=== PATIENT | female | born 1980 | race Caucasian/White ===

== ENCOUNTER 2020-05-03 13:08 | Inpatient (IN) ==
[2020-05-03 13:55] LABS: Basophils # 0.1 K/mcL (0.0-0.2); Basophils % 0.8 %; Eosinophils % 0.5 %; Hematocrit 40.8 % (35.3-44.9); Hemoglobin 13.9 g/dL (11.5-15.4); Immature Granulocytes % 0.3 % (0-4); Lymphocytes % 23.1 %; Mean Corpuscular HGB Conc 34.1 g/dL (31.6-35.5); Mean Corpuscular Hemoglobin 32.9 pg (28.0-33.3); Mean Corpuscular Volume 96.7 fL (83.0-100.0); Mean Platelet Volume 9.8 fL (9.4-12.4); Monocytes # 0.3 K/mcL (0.0-1.3); Monocytes % 3.9 %; Neutrophils # 6.2 K/mcL (1.6-8.9); Platelet Count 262 K/mcL (140-400); Red Blood Count 4.22 M/mcL (3.82-4.97); Red Cell Distribution Width 12.4 % (11.5-14.5); Segmented Neutrophils % 71.4 %; White Blood Count 8.7 K/mcL (4.3-11.1)
[2020-05-03 14:02] LABS: Amphetamine Screen,Urine Negative ng/mL (Cutoff=1000); Barbiturate Screen,Urine Negative ng/mL (Cutoff=200); Benzodiazepines Screen,Urine Negative ng/mL (Cutoff=200); Cannabinoid Screen,Urine Negative ng/mL (Cutoff = 50); Cocaine Screen,Urine Negative ng/mL (Cutoff= 300); Opiate Screen,Urine Negative ng/mL (Cutoff=300); Phencyclidine Screen,Urine Negative ng/mL (Cutoff=25)
[2020-05-03 14:05] LABS: Bilirubin,Urine Negative (Negative); Blood,Urine Negative (Negative); Clarity,Urine Clear (Clear); Color,Urine Light-Yellow (Yellow); Glucose,Urine (UA) Normal (Normal); Ketones,Urine Negative (Negative); Leukocyte Esterase,Urine Negative (Negative); Nitrite,Urine Negative (Negative); PH,Urine 6.5 pH Units (5.0-8.0); Protein,Urine Negative (Neg-Trace); Specific Gravity,Urine 1.012 (1.010-1.025); Urobilinogen,Urine Normal (Normal)
[2020-05-03 14:25] LABS: Acetaminophen < 10 mcg/mL (10-20); BUN/Creatinine Ratio 12 (6-26); Blood Urea Nitrogen 9 mg/dL (6-20); Calcium 9.5 mg/dL (8.6-10.3); Carbon Dioxide 22 mEq/L (23-29); Chloride 108 mEq/L (98-107); Chol/HDL Ratio 3.7 (0-4.9); Cholesterol 179 mg/dL (< 200); Ethanol < 10 mg/dL (Less than 10); Glucose 113 mg/dL (70-105); HDL Cholesterol 49 mg/dL (40-59); LDL Cholesterol,Calculated 109 mg/dL (< 100); Osmolality,Calculated 289 (280-300); Potassium 3.7 mEq/L (3.5-5.1); Salicylate < 2.5 mg/dL (15.0-30.0); Sodium 140 mEq/L (136-145); Triglycerides 105 mg/dL (< 150); Troponin I < 0.03 ng/mL (< 0.04); eGFR For African Americans > 60 (> 60); eGFR For Non-African Americans > 60 (> 60)
[2020-05-03 14:45] LABS: Estimated Average Glucose 100 mg/dl; Hemoglobin A1C 5.1 %
[2020-05-03] MEDS ORDERED: *HR* LORazepam 2 MG/ML VIAL IM PRN (18:11)
[2020-05-03] MEDS ORDERED: Haloperidol Lactate 5 MG/ML VIAL IM PRN (18:11)
[2020-05-03] MEDS ORDERED: *HR* LORazepam 1 MG TABLET PO PRN (18:11)
[2020-05-03] MEDS ORDERED: Mag Hydrox/Al Hydrox/Simeth 30 ML UDC PO PRN (18:11)
[2020-05-03] MEDS ORDERED: haloperidoL 5 MG TABLET PO PRN (18:11)
[2020-05-03] MEDS ORDERED: MOM Conc 10 ML UD.LIQ PO PRN (18:11)
[2020-05-03] MEDS: traZODone 50 MG TABLET PO PRN (20:46)
[2020-05-03] MEDS: hydrOXYzine pamoate 25 MG CAPSULE PO PRN (20:46)
[2020-05-03] MEDS: Acetaminophen 325 MG TABLET PO PRN (20:46)
[2020-05-04] MEDS: Acetaminophen 325 MG TABLET PO PRN (07:58)
[2020-05-04] MEDS: Potassium Effervescent 25 MEQ TABLET.EFF PO SCH (08:59)
[2020-05-04] MEDS ORDERED: (Cariprazine Hcl [Vraylar] 1.5 MG) PO SCH (09:00)
[2020-05-04] MEDS: Loratadine 10 MG TABLET PO SCH (09:00)
[2020-05-04] MEDS: hydrOXYzine pamoate 25 MG CAPSULE PO PRN ×2 (12:04→15:48)
[2020-05-04] MEDS: Ibuprofen 400 MG TABLET PO PRN ×2 (14:42→20:37)
[2020-05-04] MEDS: hydrOXYzine pamoate 25 MG CAPSULE PO SCH (20:37)
[2020-05-04] MEDS: traZODone 50 MG TABLET PO PRN (20:37)
[2020-05-05] MEDS: hydrOXYzine pamoate 25 MG CAPSULE PO PRN (01:07)
[2020-05-05] MEDS: traZODone 50 MG TABLET PO PRN (01:07)
[2020-05-05] MEDS: Ibuprofen 400 MG TABLET PO PRN ×2 (04:41→15:05)
[2020-05-05] MEDS: Potassium Effervescent 25 MEQ TABLET.EFF PO SCH (08:26)
[2020-05-05] MEDS: Loratadine 10 MG TABLET PO SCH (08:27)
[2020-05-05] MEDS: (Cariprazine Hcl [Vraylar] 1.5 MG) PO SCH (08:28)
[2020-05-05] MEDS: QUEtiapine Fumarate 100 MG TABLET PO PRN ×2 (11:43→20:35)
[2020-05-05] MEDS: hydrOXYzine pamoate 25 MG CAPSULE PO SCH (20:35)
[2020-05-06] MEDS: QUEtiapine Fumarate 100 MG TABLET PO PRN (03:50)
[2020-05-06] MEDS: Ibuprofen 400 MG TABLET PO PRN ×2 (03:50→15:29)
[2020-05-06] MEDS: hydrOXYzine pamoate 25 MG CAPSULE PO PRN ×2 (05:26→13:11)
[2020-05-06] MEDS: Potassium Effervescent 25 MEQ TABLET.EFF PO SCH (07:58)
[2020-05-06] MEDS: (Cariprazine Hcl [Vraylar] 1.5 MG) PO SCH (07:59)
[2020-05-06] MEDS: Loratadine 10 MG TABLET PO SCH (08:01)
[2020-05-06] MEDS ORDERED: QUEtiapine Fumarate 25 MG TABLET PO PRN (10:23)
[2020-05-06] MEDS: QUEtiapine Fumarate 100 MG TABLET PO SCH ×2 (15:29→20:21)
[2020-05-06] MEDS: hydrOXYzine pamoate 25 MG CAPSULE PO SCH (20:20)
[2020-05-07] MEDS: Ibuprofen 400 MG TABLET PO PRN ×2 (03:27→20:50)
[2020-05-07] MEDS: Potassium Effervescent 25 MEQ TABLET.EFF PO SCH (07:55)
[2020-05-07] MEDS: Loratadine 10 MG TABLET PO SCH (07:56)
[2020-05-07] MEDS: QUEtiapine Fumarate 100 MG TABLET PO SCH ×3 (07:57→20:50)
[2020-05-07] MEDS ORDERED: (Cariprazine Hcl [Vraylar] 1.5 MG) PO SCH (09:00)
[2020-05-07] MEDS: hydrOXYzine pamoate 25 MG CAPSULE PO PRN ×2 (09:51→16:54)
[2020-05-07] MEDS: (Cariprazine Hcl [Vraylar] 1.5 MG) PO SCH (09:52)
[2020-05-07] MEDS: hydrOXYzine pamoate 25 MG CAPSULE PO SCH (20:50)
[2020-05-08] MEDS: hydrOXYzine pamoate 25 MG CAPSULE PO PRN ×2 (01:08→11:34)
[2020-05-08] MEDS: Potassium Effervescent 25 MEQ TABLET.EFF PO SCH (08:54)
[2020-05-08] MEDS: QUEtiapine Fumarate 100 MG TABLET PO SCH ×2 (08:56→15:07)
[2020-05-08] MEDS: Loratadine 10 MG TABLET PO SCH (08:57)
[2020-05-08] MEDS: (Cariprazine Hcl [Vraylar] 1.5 MG) PO SCH (08:57)
[2020-05-08 09:30] VITALS: BP 120/81
== END 2020-05-08 16:00 | disposition other institution (70) | DRG 753 ==
LOC: EMEROOARM 13:08 → 1ANU 17:14
PROVIDERS: ADMIT Psychiatry & Neurology Psychiatry; ATTEND Psychiatry & Neurology Psychiatry

== ENCOUNTER 2020-06-04 09:37 | Observation (INO) ==
[2020-06-04] MEDS ORDERED: 0.9 % Sodium Chloride 1,000 ML IVC ONE (09:49)
[2020-06-04 10:13] LABS: Basophils % 0.5 %; Bilirubin,Urine Negative (Negative); Blood,Urine Negative (Negative); Clarity,Urine Clear (Clear); Color,Urine Colorless (Yellow); Eosinophils # 0.1 K/mcL (0.0-0.6); Eosinophils % 0.7 %; Glucose,Urine (UA) Normal (Normal); Hematocrit 37.7 % (35.3-44.9); Hemoglobin 12.8 g/dL (11.5-15.4); Immature Granulocytes % 0.2 % (0-4); Ketones,Urine Negative (Negative); Leukocyte Esterase,Urine Negative (Negative); Lymphocytes # 1.7 K/mcL (0.6-4.6); Lymphocytes % 19.2 %; Mean Corpuscular Hemoglobin 32.2 pg (28.0-33.3); Mean Corpuscular Volume 94.7 fL (83.0-100.0); Monocytes # 0.5 K/mcL (0.0-1.3); Monocytes % 5.3 %; Neutrophils # 6.5 K/mcL (1.6-8.9); Nitrite,Urine Negative (Negative); Platelet Count 197 K/mcL (140-400); Protein,Urine Negative (Neg-Trace); Red Blood Count 3.98 M/mcL (3.82-4.97); Red Cell Distribution Width 11.5 % (11.5-14.5); Segmented Neutrophils % 74.1 %; Specific Gravity,Urine 1.007 (1.010-1.025); Urobilinogen,Urine Normal (Normal); White Blood Count 8.7 K/mcL (4.3-11.1)
[2020-06-04] MEDS ORDERED: Isovue-370 500 ML BOTTLE IVP ONE (10:24)
[2020-06-04] MEDS ORDERED: *HR* HYDROmorphone (PF) 1 MG/ML SYRINGE IVP ONE (10:28)
[2020-06-04 10:35] LABS: Alanine Aminotransferase 16 Units/L (7-52); Albumin 4.1 g/dL (3.5-5.7); Albumin/Globulin Ratio 1.3 (1.1-2.2); Alkaline Phosphatase 59 Units/L (34-104); Aspartate Amino Transferase 16 Units/L (13-39); BUN/Creatinine Ratio 16 (6-26); Bilirubin,Direct 0.1 mg/dL (0.0-0.2); Bilirubin,Indirect 0.3 mg/dL (0.0-1.0); Bilirubin,Total 0.4 mg/dL (0.3-1.0); Blood Urea Nitrogen 13 mg/dL (6-20); Calcium 8.7 mg/dL (8.6-10.3); Carbon Dioxide 26 mEq/L (23-29); Chloride 107 mEq/L (98-107); Globulin 3.1 g/dL (2.4-3.5); Glucose 93 mg/dL (70-105); Lipase 17 Units/L (11-82); Osmolality,Calculated 284 (280-300); Potassium 4.1 mEq/L (3.5-5.1); Sodium 137 mEq/L (136-145); Total Protein 7.2 g/dL (6.4-8.9); eGFR For African Americans > 60 (> 60); eGFR For Non-African Americans > 60 (> 60)
[2020-06-04] MEDS ORDERED: Ondansetron 4 MG/2 ML VIAL IVP ONE (11:52)
[2020-06-04] MEDS ORDERED: Naloxone 0.4 MG/ML INJ IVP PRN (14:09)
[2020-06-04] MEDS: Morphine Sulfate 2 MG/ML SYRINGE IVP PRN ×2 (14:40→21:49)
[2020-06-04] MEDS: Ondansetron 4 MG/2 ML VIAL IVP PRN (14:44)
[2020-06-04] MEDS: Pantoprazole 40 MG VIAL IVP SCH (16:42)
[2020-06-04] MEDS: 0.9 % Sodium Chloride 1,000 ML IVC SCH (16:42)
[2020-06-04] MEDS: *HR* Heparin 5,000 UNIT/ML VIAL SQ SCH (21:49)
[2020-06-05] MEDS: Ondansetron 4 MG/2 ML VIAL IVP PRN ×3 (01:48→20:04)
[2020-06-05] MEDS: 0.9 % Sodium Chloride 1,000 ML IVC SCH (01:49)
[2020-06-05] MEDS: Morphine Sulfate 2 MG/ML SYRINGE IVP PRN ×4 (03:54→22:14)
[2020-06-05] MEDS: *HR* Heparin 5,000 UNIT/ML VIAL SQ SCH ×3 (07:02→21:47)
[2020-06-05] MEDS: Pantoprazole 40 MG VIAL IVP SCH ×2 (07:02→16:08)
[2020-06-05 07:06] LABS: Basophils % 0.6 %; Eosinophils # 0.1 K/mcL (0.0-0.6); Hematocrit 36.6 % (35.3-44.9); Hemoglobin 12.1 g/dL (11.5-15.4); Immature Granulocytes % 0.3 % (0-4); Lymphocytes # 1.9 K/mcL (0.6-4.6); Lymphocytes % 27.5 %; Mean Corpuscular HGB Conc 33.1 g/dL (31.6-35.5); Mean Corpuscular Hemoglobin 31.3 pg (28.0-33.3); Mean Corpuscular Volume 94.8 fL (83.0-100.0); Mean Platelet Volume 9.6 fL (9.4-12.4); Monocytes # 0.4 K/mcL (0.0-1.3); Monocytes % 5.9 %; Neutrophils # 4.4 K/mcL (1.6-8.9); Platelet Count 192 K/mcL (140-400); Red Blood Count 3.86 M/mcL (3.82-4.97); Red Cell Distribution Width 11.4 % (11.5-14.5); Segmented Neutrophils % 64.7 %; White Blood Count 6.8 K/mcL (4.3-11.1)
[2020-06-05 07:27] LABS: BUN/Creatinine Ratio 13 (6-26); Blood Urea Nitrogen 11 mg/dL (6-20); Calcium 8.3 mg/dL (8.6-10.3); Carbon Dioxide 24 mEq/L (23-29); Chloride 112 mEq/L (98-107); Glucose 81 mg/dL (70-105); Osmolality,Calculated 294 (280-300); Potassium 3.8 mEq/L (3.5-5.1); Sodium 143 mEq/L (136-145); eGFR For African Americans > 60 (> 60); eGFR For Non-African Americans > 60 (> 60)
[2020-06-05] MEDS: D5% in 0.9% NACL w KCl 20 MEQ/1,000 ML MLS IVC SCH ×2 (09:53→21:50)
[2020-06-05] MEDS ORDERED: Chloraseptic Spray 177 ML BOTTLE MM PRN (12:48)
[2020-06-06] MEDS: *HR* Heparin 5,000 UNIT/ML VIAL SQ SCH ×2 (04:34→13:33)
[2020-06-06] MEDS: Ondansetron 4 MG/2 ML VIAL IVP PRN (04:34)
[2020-06-06] MEDS: Morphine Sulfate 2 MG/ML SYRINGE IVP PRN (04:40)
[2020-06-06 06:08] LABS: Basophils % 0.5 %; Eosinophils # 0.1 K/mcL (0.0-0.6); Eosinophils % 0.9 %; Hematocrit 36.6 % (35.3-44.9); Hemoglobin 12.2 g/dL (11.5-15.4); Immature Granulocytes % 0.4 % (0-4); Lymphocytes # 1.8 K/mcL (0.6-4.6); Lymphocytes % 22.5 %; Mean Corpuscular HGB Conc 33.3 g/dL (31.6-35.5); Mean Corpuscular Volume 93.1 fL (83.0-100.0); Mean Platelet Volume 9.5 fL (9.4-12.4); Monocytes # 0.5 K/mcL (0.0-1.3); Monocytes % 5.5 %; Neutrophils # 5.7 K/mcL (1.6-8.9); Platelet Count 187 K/mcL (140-400); Red Blood Count 3.93 M/mcL (3.82-4.97); Red Cell Distribution Width 11.2 % (11.5-14.5); Segmented Neutrophils % 70.2 %; White Blood Count 8.2 K/mcL (4.3-11.1)
[2020-06-06 06:29] LABS: Alanine Aminotransferase 17 Units/L (7-52); Albumin 3.7 g/dL (3.5-5.7); Albumin/Globulin Ratio 1.2 (1.1-2.2); Alkaline Phosphatase 63 Units/L (34-104); Aspartate Amino Transferase 14 Units/L (13-39); BUN/Creatinine Ratio 11 (6-26); Bilirubin,Indirect 0.4 mg/dL (0.0-1.0); Bilirubin,Total 0.4 mg/dL (0.3-1.0); Blood Urea Nitrogen 9 mg/dL (6-20); Calcium 8.5 mg/dL (8.6-10.3); Carbon Dioxide 23 mEq/L (23-29); Chloride 109 mEq/L (98-107); Globulin 3.1 g/dL (2.4-3.5); Glucose 101 mg/dL (70-105); Magnesium 1.9 mg/dL (1.6-2.6); Osmolality,Calculated 285 (280-300); Potassium 3.6 mEq/L (3.5-5.1); Sodium 138 mEq/L (136-145); Total Protein 6.8 g/dL (6.4-8.9); eGFR For African Americans > 60 (> 60); eGFR For Non-African Americans > 60 (> 60)
[2020-06-06] MEDS ORDERED: Loratadine 10 MG TABLET PO SCH (09:00)
[2020-06-06] MEDS: Calcium Gluconate 1gm/50mL 1 GM/50 ML BAG IVPB SCH ×2 (12:24→13:33)
[2020-06-06] MEDS: D5% in 0.9% NACL w KCl 20 MEQ/1,000 ML MLS IVC SCH (13:09)
[2020-06-06 14:44] VITALS: BP 137/88
== END 2020-06-06 19:01 | disposition home or self-care (01) ==
LOC: 3ANU 09:37 → EMEROOARM 09:37 → SUATTDRO 14:51 → 3ANU 15:41
PROVIDERS: ADMIT Family Medicine; ATTEND Internal Medicine

== ENCOUNTER 2020-08-07 00:15 | Inpatient (IN) ==
[2020-08-07 02:08] LABS: Basophils # 0.1 K/mcL (0.0-0.2); Basophils % 0.5 %; Eosinophils % 0.4 %; Hematocrit 37.9 % (35.3-44.9); Immature Granulocytes % 0.3 % (0-4); Lymphocytes % 19.6 %; Mean Corpuscular HGB Conc 34.3 g/dL (31.6-35.5); Mean Corpuscular Hemoglobin 31.3 pg (28.0-33.3); Mean Corpuscular Volume 91.3 fL (83.0-100.0); Mean Platelet Volume 9.8 fL (9.4-12.4); Monocytes # 0.6 K/mcL (0.0-1.3); Monocytes % 5.5 %; Neutrophils # 7.5 K/mcL (1.6-8.9); Platelet Count 233 K/mcL (140-400); Red Blood Count 4.15 M/mcL (3.82-4.97); Red Cell Distribution Width 12.5 % (11.5-14.5); Segmented Neutrophils % 73.7 %; White Blood Count 10.2 K/mcL (4.3-11.1)
[2020-08-07 02:10] LABS: Bilirubin,Urine Negative (Negative); Blood,Urine Trace (Negative); Clarity,Urine Clear (Clear); Color,Urine Yellow (Yellow); Glucose,Urine (UA) Normal (Normal); Hyaline Casts,Urine Few per lpf (None Seen); Ketones,Urine Negative (Negative); Leukocyte Esterase,Urine Negative (Negative); Mucus,Urine Few per lpf (None-Few); Nitrite,Urine Negative (Negative); PH,Urine 5.5 pH Units (5.0-8.0); Protein,Urine 50 mg/dL (Neg-Trace); Specific Gravity,Urine > 1.030 (1.010-1.025); Squamous Epithelial Cell,Urine Moderate per hpf (None-Few); Urobilinogen,Urine Normal (Normal); WBC,Urine 0-3 per hpf (0-3)
[2020-08-07] MEDS ORDERED: *HR* FentaNYL (PF) 100 MCG/2 ML VIAL IVP ONE (02:23)
[2020-08-07] MEDS ORDERED: Ondansetron 4 MG/2 ML VIAL IVP ONE (02:23)
[2020-08-07 02:29] LABS: Albumin 4.2 g/dL (3.5-5.7); Albumin/Globulin Ratio 1.4 (1.1-2.2); Bilirubin,Direct 0.1 mg/dL (0.0-0.2); Bilirubin,Indirect 0.2 mg/dL (0.0-1.0); Bilirubin,Total 0.3 mg/dL (0.3-1.0); Calcium 9.5 mg/dL (8.6-10.3); Potassium 3.6 mEq/L (3.5-5.1); Total Protein 7.2 g/dL (6.4-8.9)
[2020-08-07] MEDS ORDERED: *HR* Metoprolol 5 MG/5 ML VIAL IVP PRN (05:12)
[2020-08-07] MEDS ORDERED: Ondansetron 4 MG/2 ML VIAL IVP PRN ×2 (05:13→09:52)
[2020-08-07] MEDS ORDERED: Naloxone 0.4 MG/ML INJ IVP PRN (05:13)
[2020-08-07] MEDS: 0.9 % Sodium Chloride 1,000 ML IVC SCH ×2 (05:50→16:25)
[2020-08-07] MEDS: *HR* Promethazine 25 MG/ML VIAL IM PRN ×2 (05:52→16:33)
[2020-08-07] MEDS: Chloraseptic Spray 177 ML BOTTLE MM PRN (06:58)
[2020-08-07] MEDS ORDERED: Lidocaine Jelly 11 ml Syringe MM STA (08:49)
[2020-08-07] MEDS ORDERED: Tetracaine/Benzocaine/Butamben 1 SPRAY AEROSOL MM STA (08:49)
[2020-08-07] MEDS: Levothyroxine Sodium 100 MCG VIAL IVP SCH (11:00)
[2020-08-07] MEDS ORDERED: Haloperidol Lactate 5 MG/ML VIAL IM PRN (13:49)
[2020-08-07] MEDS: *HR* Heparin 5,000 UNIT/ML VIAL SQ SCH ×2 (16:26→21:08)
[2020-08-07] MEDS: OLANZapine 10 MG VIAL IM SCH (19:57)
[2020-08-08] MEDS: 0.9 % Sodium Chloride 1,000 ML IVC SCH ×3 (03:00→20:06)
[2020-08-08 06:12] LABS: BUN/Creatinine Ratio 20 (6-26); Blood Urea Nitrogen 19 mg/dL (6-20); Carbon Dioxide 23 mEq/L (23-29); Chloride 108 mEq/L (98-107); Glucose 95 mg/dL (70-105); Magnesium 2.1 mg/dL (1.6-2.6); Osmolality,Calculated 290 (280-300); Phosphorous 3.2 mg/dL (2.7-4.5); Potassium 3.4 mEq/L (3.5-5.1); Sodium 139 mEq/L (136-145); eGFR For African Americans > 60 (> 60); eGFR For Non-African Americans > 60 (> 60)
[2020-08-08] MEDS: *HR* Heparin 5,000 UNIT/ML VIAL SQ SCH ×3 (07:57→21:06)
[2020-08-08] MEDS: Levothyroxine Sodium 100 MCG VIAL IVP SCH (08:34)
[2020-08-08] MEDS ORDERED: Ketorolac 15 MG/ML VIAL IVP ONE (13:09)
[2020-08-08] MEDS ORDERED: Potassium Chloride 20 MEQ, Lidocaine 1% 2 ML in 0.9 % Sodium Chloride 250 ML IVPB ONE (13:11)
[2020-08-08] MEDS: *HR* Promethazine 25 MG/ML VIAL IM PRN (16:48)
[2020-08-08] MEDS: Chloraseptic Spray 177 ML BOTTLE MM PRN (20:09)
[2020-08-08] MEDS: OLANZapine 10 MG VIAL IM SCH (21:05)
[2020-08-09] MEDS: *HR* Heparin 5,000 UNIT/ML VIAL SQ SCH ×3 (05:25→21:50)
[2020-08-09] MEDS: 0.9 % Sodium Chloride 1,000 ML IVC SCH ×2 (05:36→17:01)
[2020-08-09 07:52] LABS: BUN/Creatinine Ratio 16 (6-26); Blood Urea Nitrogen 14 mg/dL (6-20); Calcium 7.9 mg/dL (8.6-10.3); Carbon Dioxide 21 mEq/L (23-29); Chloride 111 mEq/L (98-107); Glucose 89 mg/dL (70-105); Magnesium 2.1 mg/dL (1.6-2.6); Osmolality,Calculated 290 (280-300); Phosphorous 2.6 mg/dL (2.7-4.5); Potassium 3.6 mEq/L (3.5-5.1); Sodium 140 mEq/L (136-145); eGFR For African Americans > 60 (> 60); eGFR For Non-African Americans > 60 (> 60)
[2020-08-09] MEDS: Levothyroxine Sodium 100 MCG VIAL IVP SCH (08:40)
[2020-08-09] MEDS: OLANZapine 10 MG VIAL IM SCH (21:50)
[2020-08-10] MEDS: 0.9 % Sodium Chloride 1,000 ML IVC SCH (02:55)
[2020-08-10] MEDS: *HR* Heparin 5,000 UNIT/ML VIAL SQ SCH (04:17)
[2020-08-10] MEDS ORDERED: Fluticasone Propionate Nasal 50 MCG/SPRAY BOTTLE NS SCH (09:00)
[2020-08-10] MEDS ORDERED: (Terbinafine Hcl [Terbinafine Hcl] 250 MG Tablet) PO SCH (09:30)
[2020-08-10 10:22] VITALS: BP 132/92
[2020-08-10] MEDS: Levothyroxine Sodium 100 MCG VIAL IVP SCH (10:46)
[2020-08-10] MEDS: QUEtiapine Fumarate 100 MG TABLET PO SCH ×2 (10:48→13:17)
[2020-08-10] MEDS ORDERED: PRAZOSIN HCL 2 MG PO SCH (21:00)
[2020-08-10] MEDS ORDERED: QUEtiapine Fumarate 100 MG TABLET PO SCH (21:00)
[2020-08-10] MEDS ORDERED: lamoTRIgine 25 MG TABLET PO SCH (21:00)
== END 2020-08-10 14:18 | disposition home or self-care (01) | DRG 247 ==
LOC: EMEROOARM 00:15 → 3BNU 00:15 → SUATTDRO 04:25 → 3BNU 05:15
PROVIDERS: ADMIT Internal Medicine; ATTEND Internal Medicine

== ENCOUNTER 2021-11-19 03:50 | Inpatient (IN) ==
[2021-11-19 07:17] LABS: Basophils # 0.1 K/mcL (0.0-0.2); Basophils % 0.5 %; Eosinophils % 0.3 %; Hemoglobin 14.9 g/dL (11.5-15.4); Immature Granulocytes % 0.6 % (0-4); Lymphocytes # 3.2 K/mcL (0.6-4.6); Lymphocytes % 32.8 %; Mean Corpuscular HGB Conc 33.1 g/dL (31.6-35.5); Mean Corpuscular Hemoglobin 30.7 pg (28.0-33.3); Mean Corpuscular Volume 92.6 fL (83.0-100.0); Mean Platelet Volume 9.5 fL (9.4-12.4); Monocytes # 0.7 K/mcL (0.0-1.3); Monocytes % 7.4 %; Neutrophils # 5.7 K/mcL (1.6-8.9); Platelet Count 261 K/mcL (140-400); Red Blood Count 4.86 M/mcL (3.82-4.97); Red Cell Distribution Width 13.1 % (11.5-14.5); Segmented Neutrophils % 58.4 %; White Blood Count 9.7 K/mcL (4.3-11.1)
[2021-11-19 07:21] LABS: Bilirubin,Urine Negative (Negative); Blood,Urine Negative (Negative); Clarity,Urine Clear (Clear); Color,Urine Yellow (Yellow); Glucose,Urine (UA) Normal (Normal); Ketones,Urine 10 mg/dL (Negative); Leukocyte Esterase,Urine Negative (Negative); Mucus,Urine Few per lpf (None-Few); Nitrite,Urine Negative (Negative); Protein,Urine 30 mg/dL (Neg-Trace); Specific Gravity,Urine > 1.030 (1.010-1.025); Squamous Epithelial Cell,Urine Moderate per hpf (None-Few); Urobilinogen,Urine Normal (Normal); WBC,Urine 0-3 per hpf (0-3)
[2021-11-19] MEDS ORDERED: Iopamidol - 370 500 ML MLS IVP ONE (07:35)
[2021-11-19] MEDS ORDERED: Morphine Sulfate 2 MG/ML SYRINGE IVP ONE ×2 (08:45→11:30)
[2021-11-19] MEDS ORDERED: Ondansetron 4 MG/2 ML VIAL IVP ONE ×2 (08:45→11:30)
[2021-11-19] MEDS ORDERED: 0.9 % Sodium Chloride 1,000 ML IV ONE (08:45)
[2021-11-19 09:49] LABS: Alanine Aminotransferase 14 Units/L (7-52); Albumin 4.1 g/dL (3.5-5.7); Albumin/Globulin Ratio 1.3 (1.1-2.2); Alkaline Phosphatase 51 Units/L (34-104); Aspartate Amino Transferase 13 Units/L (13-39); BUN/Creatinine Ratio 21 (6-26); Bilirubin,Direct 0.1 mg/dL (0.0-0.2); Bilirubin,Indirect 0.1 mg/dL (0.0-1.0); Bilirubin,Total 0.2 mg/dL (0.3-1.0); Blood Urea Nitrogen 23 mg/dL (6-20); Carbon Dioxide 31 mEq/L (23-29); Chloride 105 mEq/L (98-107); Globulin 3.1 g/dL (2.4-3.5); Glucose 90 mg/dL (70-105); Lipase 12 Units/L (11-82); Osmolality,Calculated 297 (280-300); Potassium 3.7 mEq/L (3.5-5.1); Sodium 142 mEq/L (136-145); Total Protein 7.2 g/dL (6.4-8.9)
[2021-11-19 09:51] LABS: Troponin I < 0.03 ng/mL (< 0.04)
[2021-11-19] MEDS ORDERED: Naloxone 0.4 MG/ML INJ IVP PRN (11:54)
[2021-11-19] MEDS ORDERED: Ondansetron 4 MG/2 ML VIAL IVP PRN (11:54)
[2021-11-19] MEDS ORDERED: Acetaminophen IV 1,000 MG/100 ML BAG IVPB SCH (12:00)
[2021-11-19] MEDS ORDERED: Pantoprazole 40 MG VIAL IVP ONE (12:51)
[2021-11-19] MEDS: Ringers Solution, Lactated 1,000 ML IVC SCH ×2 (13:05→22:43)
[2021-11-19] MEDS: *HR* HYDROmorphone (PF) 1 MG/ML SYRINGE IVP PRN ×2 (14:12→22:44)
[2021-11-19] MEDS ORDERED: Ketorolac 30 MG/ML VIAL IVP ONE (16:00)
[2021-11-20] MEDS: Ondansetron 4 MG/2 ML VIAL IVP PRN ×3 (01:00→19:00)
[2021-11-20] MEDS ORDERED: Acetaminophen IV 1,000 MG/100 ML BAG IVPB SCH (01:15)
[2021-11-20 06:00] LABS: Basophils % 0.3 %; Eosinophils # 0.1 K/mcL (0.0-0.6); Eosinophils % 0.6 %; Hematocrit 39.6 % (35.3-44.9); Immature Granulocytes % 0.3 % (0-4); Lymphocytes # 1.6 K/mcL (0.6-4.6); Lymphocytes % 18.4 %; Mean Corpuscular HGB Conc 32.3 g/dL (31.6-35.5); Mean Corpuscular Hemoglobin 30.9 pg (28.0-33.3); Mean Corpuscular Volume 95.7 fL (83.0-100.0); Mean Platelet Volume 9.6 fL (9.4-12.4); Monocytes # 0.6 K/mcL (0.0-1.3); Monocytes % 6.4 %; Neutrophils # 6.5 K/mcL (1.6-8.9); Platelet Count 216 K/mcL (140-400); Red Blood Count 4.14 M/mcL (3.82-4.97); Red Cell Distribution Width 13.4 % (11.5-14.5); White Blood Count 8.7 K/mcL (4.3-11.1)
[2021-11-20 06:02] LABS: Hemoglobin 12.8 g/dL (11.5-15.4)
[2021-11-20 06:18] LABS: Calcium 8.9 mg/dL (8.6-10.3); Magnesium 2.2 mg/dL (1.6-2.6); Phosphorous 4.1 mg/dL (2.7-4.5); Potassium 4.1 mEq/L (3.5-5.1)
[2021-11-20] MEDS ORDERED: *HR* Enoxaparin 40 MG/0.4 ML SYRINGE SQ SCH (07:00)
[2021-11-20] MEDS: Pantoprazole 40 MG VIAL IVP SCH (07:59)
[2021-11-20] MEDS: Levothyroxine Sodium 100 MCG VIAL IVP SCH (08:00)
[2021-11-20] MEDS: *HR* HYDROmorphone (PF) 1 MG/ML SYRINGE IVP PRN ×2 (08:23→19:00)
[2021-11-20] MEDS: D5% in 0.9% NACL 1,000 ML IVC SCH (12:02)
[2021-11-21] MEDS: *HR* HYDROmorphone (PF) 1 MG/ML SYRINGE IVP PRN ×2 (03:14→12:10)
[2021-11-21] MEDS: D5% in 0.9% NACL 1,000 ML IVC SCH ×2 (04:13→17:31)
[2021-11-21] MEDS: *HR* Heparin 5,000 UNIT/ML VIAL SQ SCH ×3 (06:23→20:49)
[2021-11-21] MEDS: Ondansetron 4 MG/2 ML VIAL IVP PRN (08:27)
[2021-11-21] MEDS: Pantoprazole 40 MG VIAL IVP SCH (08:28)
[2021-11-21] MEDS: Levothyroxine Sodium 100 MCG VIAL IVP SCH (08:28)
[2021-11-21] MEDS: Gabapentin 300 MG CAPSULE PO SCH ×2 (15:24→20:50)
[2021-11-21] MEDS: methocarbamoL 750 MG TABLET PO SCH ×2 (15:24→23:58)
[2021-11-21] MEDS: Ziprasidone 20 MG CAPSULE PO SCH (20:50)
[2021-11-21] MEDS: Furosemide 40 MG TABLET PO SCH (20:50)
[2021-11-21] MEDS ORDERED: Divalproex (24 HR) 500 MG TABLET PO SCH (21:00)
[2021-11-21] MEDS ORDERED: traZODone 50 MG TABLET PO SCH (21:00)
[2021-11-22 03:30] LABS: Basophils # 0.1 K/mcL (0.0-0.2); Basophils % 0.7 %; Eosinophils # 0.1 K/mcL (0.0-0.6); Eosinophils % 1.4 %; Immature Granulocytes % 0.8 % (0-4); Lymphocytes # 2.9 K/mcL (0.6-4.6); Lymphocytes % 39.1 %; Mean Corpuscular HGB Conc 33.3 g/dL (31.6-35.5); Mean Corpuscular Hemoglobin 31.1 pg (28.0-33.3); Mean Corpuscular Volume 93.3 fL (83.0-100.0); Monocytes # 0.5 K/mcL (0.0-1.3); Monocytes % 6.1 %; Neutrophils # 3.8 K/mcL (1.6-8.9); Platelet Count 188 K/mcL (140-400); Red Blood Count 3.86 M/mcL (3.82-4.97); Red Cell Distribution Width 12.9 % (11.5-14.5); Segmented Neutrophils % 51.9 %; White Blood Count 7.4 K/mcL (4.3-11.1)
[2021-11-22 03:48] LABS: Calcium 7.9 mg/dL (8.6-10.3); Magnesium 1.9 mg/dL (1.6-2.6); Potassium 3.3 mEq/L (3.5-5.1)
[2021-11-22] MEDS: *HR* Heparin 5,000 UNIT/ML VIAL SQ SCH (05:41)
[2021-11-22] MEDS: D5% in 0.9% NACL 1,000 ML IVC SCH (06:18)
[2021-11-22] MEDS ORDERED: Potassium Effervescent 25 MEQ TABLET.EFF PO ONE (07:42)
[2021-11-22] MEDS: Gabapentin 300 MG CAPSULE PO SCH (08:09)
[2021-11-22] MEDS: methocarbamoL 750 MG TABLET PO SCH (08:09)
[2021-11-22] MEDS: Ziprasidone 20 MG CAPSULE PO SCH (08:09)
[2021-11-22] MEDS: Furosemide 40 MG TABLET PO SCH (08:09)
[2021-11-22] MEDS ORDERED: Cholecalciferol (D-3) 1,000 UNIT (25MCG) TABLET PO SCH (09:00)
[2021-11-22] MEDS ORDERED: Fluticasone Propionate Nasal 50 MCG/SPRAY BOTTLE NS SCH (09:00)
[2021-11-22 11:37] VITALS: BP 144/90; PULSE 61; TEMP 98.3; O2SAT 95
== END 2021-11-22 14:14 | disposition home or self-care (01) | DRG 389 ==
LOC: 3ANU 03:50 → EMEROOARM 03:50 → 3ANU 16:20 → SUATTDRO 11-20 14:35
PROVIDERS: ADMIT Pharmacist; ATTEND Hospitalist